=== PATIENT | male | born 2000 | race Caucasian/White ===

== ENCOUNTER 2023-09-14 16:22 | Emergency (ER) | payer BC, SELFPAY ==
[2023-09-14 16:47] VITALS: BP 121/71; PULSE 67; RESP 18; TEMP 36.8; O2SAT 97; BMI 22.5
--- NOTE | 2023-09-14 18:00 | ED.NURSE ---
Wound care and dressing done by EDT.
--- NOTE | 2023-09-14 18:21 | ED.WOUNDLAC ---
HPI - Wound/Laceration General Date Seen: 09/14/23 Chief Complaint: Laceration/Wound Stated Complaint: R leg laceration Time Seen by Provider: 09/14/23 16:48 Source: patient Mode of arrival: ambulatory Limitations: no limitations History of Present Illness HPI narrative: Patient is a 23 year male presented emergency department for laceration to his right lower thigh. He states at hockey practice he squatted down in the back of his skate cut into his leg. This happened shortly prior to arrival. No other injuries noted. His last tetanus shot was 2 years ago. No other concerns at this time Related Data Home Medications Medication Instructions Recorded Confirmed No Known Home Medications 09/14/23 09/14/23 Allergies Allergy/AdvReac Type Severity Reaction Status Date / Time No Known Drug Allergies Allergy Verified 09/14/23 16:46 Review of Systems Narrative: Negative unless sane HPI PFSH PFSH Social History Smoking Status: Never smoker Do you use any of these nicotine containing products: None Second hand tobacco smoke exposure: No How often do you have a drink containing alcohol: 2-4 times a month How many standard drinks containing alcohol do you have on a typical day: 5 or 6 How often do you have six or more drinks on one occasion: Less than monthly AUDIT-C Alcohol total score: 5 Non-prescribed substance use: denies use service: No Exam Narrative: Exam Narrative: Const: Well-nourished, Well-developed, in mild distress Eyes: PERRL, no conjunctival injection, and symmetrical lids HENT: Atraumatic external nose and ears. Moist mucous membranes. MSK:Extremities w/o deformity, Normal Active ROM Skin: Warm, Dry. 1 cm laceration to the distal right thigh. It is anterior medial Neuro: Normal Muscle tone, No focal neurological deficits. Psych: Awake, Alert, & Oriented x3. Appropriate mood and affect. Const: Vital Signs, click to edit/add: Vital Signs - 24 hr 09/14/23 16:47 Temperature 98.2 F Pulse Rate [Pulse Oximeter] 67 Respiratory Rate 18 Blood Pressure [Ri ght Upper Arm] 121/71 Pulse Oximetry 97 Oxygen Delivery Me thod Room Air Course Vital Signs Vital signs: Initial Vital Signs Temperature 98.2 F 09/14/23 16:47 Temperature Source Temporal Artery Scan 09/14/23 16:47 Pulse Rate 67 09/14/23 16:47 Pulse Rhythm Regular 09/14/23 16:47 Respiratory Rate 18 09/14/23 16:47 Blood Pressure 121/71 09/14/23 16:47 Blood Pressure Mean 87 09/14/23 16:47 Pulse Oximetry 97 09/14/23 16:47 Oxygen Delivery Method Room Air 09/14/23 16:47 Vital Signs Temperature 98.2 F 09/14/23 16:47 Pulse Rate 67 09/14/23 16:47 Respiratory Rate 18 09/14/23 16:47 Blood Pressure 121/71 09/14/23 16:47 Pulse Oximetry 97 09/14/23 16:47 Oxygen Delivery Method Room Air 09/14/23 16:47 Temperature 98.2 F 09/14/23 16:47 Pulse Rate 67 09/14/23 16:47 Respiratory Rate 18 09/14/23 16:47 Blood Pressure 121/71 09/14/23 16:47 Pulse Oximetry 97 09/14/23 16:47 Oxygen Delivery Method Room Air 09/14/23 16:47 MDM - Wound/Laceration MDM Narrative Medical decision making narrative: History reviewed male presenting for laceration to his right thigh. Antibiotics not necessary at this time. Deep structures appear to be injured he has full range motion the leg. It is more for 5 cm above the knee and very unlikely to involve the knee joint. I do not believe antibiotics or further evaluation knee is necessary at this time. Patient tolerated procedure well and see laceration repair note. He will be discharged home. Has not required antibiotics. Discharge Plan Discharge Clinical Impression: Laceration Patient Disposition: Home, Self-Care Condition: Stable Instructions: Laceration (ED) Additional Instructions: Follow-up with your primary care provider in the next 7 days to have the 5 sutures removed. For next 6 months, once sutures are removed, whenever you goes outside put a tab of sunscreen over the laceration site to improve scar appearance. Topical antibiotics are not necessary at this time. Patient can shower but do not submerge the laceration until sutures are removed. Prescriptions: No Action No Known Home Medications Follow Up/Referrals: Provider,Not a Local [Primary Care Provider] - Stand Alone [facility] Inst[facility] Procedures Laceration Right distal thigh: Name of person performing procedure: Aron Pantoja Site: lower extremity (anterial medial thigh) Side (If applicable): right Size (cm): 1 Description: linear and clean Depth: simple, single layer Local Anesthetic: bupivacaine 0.25% Amount of anesthesia used (mL): 2 Pre-repair: wound explored, irrigated extensively and deep structures intact Skin layer closed with: nylon Size (cm): 4-0 Number of sutures: 5 Technique: simple, interrupted
[2023-09-14 18:33] VITALS: BP 121/71; PULSE 67; RESP 18; TEMP 36.8
== END 2023-09-14 18:34 | disposition home or self-care (01) ==
PROVIDERS: Emergency Provider Student in an Organized Health Care Education/Training Program
DX: S71.111A Laceration without foreign body, right thigh, initial encounter (principal); W26.9XXA Contact with unspecified sharp object(s), initial encounter; Y93.22 Activity, ice hockey
CPT/HCPCS: 12001; 99283